=== PATIENT | female | born 1950 | race Caucasian/White ===

== ENCOUNTER 2018-04-20 12:22 | Emergency (ER) | payer MEDICAID ==
[~2018-04-20] VITALS: Ht 154.9 cm; Wt 80.0 kg
[2018-04-20 12:30] VITALS: BP 179/64; PULSE 68; RESP 16; TEMP 98.8; O2SAT 97
[2018-04-20] MEDS ORDERED: KETOROLAC TROMETHAMINE 30 MG/ML (IVP) VIAL IVP ONE (13:15)
[2018-04-20 13:41] VITALS: O2SAT 97
[2018-04-20 13:41] LABS: AUTOMATED NEUTROPHIL # 3.6 TH/MM3 (1.8-7.7); BASOPHIL # 0.1 TH/MM3 (0-0.2); BASOPHIL % 0.8 % (0.0-2.0); EOSINOPHIL # 0.3 TH/MM3 (0-0.4); EOSINOPHIL % 3.6 % (0.0-4.0); HEMATOCRIT 38.2 % (35.0-46.0); HEMOGLOBIN 13.3 GM/DL (11.6-15.3); LYMPH % 32.8 % (9.0-44.0); LYMPHOCYTE # 2.3 TH/MM3 (1.0-4.8); MEAN CELL VOLUME 87.3 FL (80.0-100.0); MEAN CORPUSCULAR HEMOGLOBIN 30.5 PG (27.0-34.0); MEAN CORPUSCULAR HGB CONC 34.9 % (32.0-36.0); MONO % 10.6 % (0.0-8.0); MONOCYTE # 0.7 TH/MM3 (0-0.9); NEUT % 52.2 % (16.0-70.0); PLATELET COUNT 186 TH/MM3 (150-450); RED BLOOD COUNT 4.38 MIL/MM3 (4.00-5.30); RED CELL DISTRIBUTION WIDTH 13.5 % (11.6-17.2); WHITE BLOOD COUNT 6.9 TH/MM3 (4.0-11.0)
[2018-04-20 14:06] LABS: ALKALINE PHOSPHATASE 44 U/L (45-117); CREATININE 0.71 MG/DL (0.50-1.00); GLOMERULAR FILTRATION RATE 82 ML/MIN (>89); TOTAL BILIRUBIN ADULT 0.5 MG/DL (0.2-1.0); TOTAL PROTEIN 7.1 GM/DL (6.4-8.2)
[2018-04-20 14:13] LABS: ALBUMIN 3.8 GM/DL (3.4-5.0); ALT (GPT) 36 U/L (10-53); AST (GOT) 22 U/L (15-37); BICARBONATE 25.9 MEQ/L (21.0-32.0); BLOOD UREA NITROGEN 12 MG/DL (7-18); CALCIUM 8.8 MG/DL (8.5-10.1); CHLORIDE 107 MEQ/L (98-107); GLUCOSE,RANDOM 95 MG/DL (74-106); SODIUM (NA) 141 MEQ/L (136-145)
--- NOTE | 2018-04-20 14:29 | PD ---
HPI Chief Complaint: GI Complaint Time Seen by Provider: 12:55 Travel History International Travel<30 days: No Contact w/Intl Traveler<30days: No Traveled to known affect area: No History of Present Illness HPI 67-year-old female presents to the emergency department with complaint of right upper quadrant abdominal pain that is worsened over the past couple weeks. She has history of gallstones, per ultrasound one year ago and has not been able to follow-up with a surgeon because of her insurance. Says the pain radiates around to her flank. Denies nausea, vomiting, diarrhea, fevers, dysuria, change in stool. Has been taking meloxicam and naproxen for symptom management. Rates pain 8/10. Describes it as spasms. Her pain is aggravated when she tries to have a bowel movement. Denies anticoagulant therapy. Denies history of abdominal surgeries. Primary care provider is Dr. Magallanes. No known allergies. History of hypertension and hypothyroidism. Has no other medical complaints. No other modifying factors or associated signs and symptoms. PFSH Past Medical History Cardiovascular Problems: Yes ?: Not Social History Alcohol Use: No Tobacco Use: No Substance Use: No Allergies-Medications (Allergen,Severity, Reaction): Coded Allergies: No Known Allergies (Unverified , 04/20/18) Review of Systems Except as stated in HPI: all other systems reviewed are Neg Physical Exam Narrative GENERAL: Well-nourished, well-developed female patient, in no acute distress; afebrile SKIN: Warm and dry. HEAD: Atraumatic. Normocephalic. EYES: Pupils equal and round. No scleral icterus. No injection or drainage. ENT: Mucosa pink and moist. Airway patent. NECK: Trachea midline. CARDIOVASCULAR: Regular rate and rhythm. No murmur appreciated. RESPIRATORY: No accessory muscle use. Clear to auscultation. Breath sounds equal bilaterally. GASTROINTESTINAL: Abdomen soft, tenderness on palpation to right upper quadrant , nondistended. Hepatic and splenic margins not palpable. Bowel sounds are active 4 quadrants. Nonrigid. No guarding. BACK: No CVA tenderness. MUSCULOSKELETAL: No obvious deformities. No clubbing. No cyanosis. No edema. NEUROLOGICAL: Awake and alert. Oriented 3. No obvious cranial nerve deficits. Motor grossly within normal limits. Normal speech. PSYCHIATRIC: Appropriate mood and affect; insight and judgment normal. Data Data Last Documented VS Vital Signs Date Time Temp Pulse Resp B/P (MAP) Pulse Ox O2 Delivery O2 Flow Rate FiO2 04/20/18 13:41 97 Room Air 04/20/18 12:30 98.8 68 16 179/64 (102) Orders Orders Complete Blood Count With Diff (04/20/18 12:58) Comprehensive Metabolic Panel (04/20/18 12:58) Lipase (04/20/18 12:58) Urinalysis - C+S If Indicated (04/20/18 12:58) Iv Access Insert/Monitor (04/20/18 12:58) Ecg Monitoring (04/20/18 12:58) Oximetry (04/20/18 12:58) Us Abdomen Gallbladder (04/20/18 ) Ketorolac Inj (Toradol Inj) (04/20/18 13:15) Ed Discharge Order (04/20/18 16:54) Labs Laboratory Tests Test 04/20/18 13:30 White Blood Count 6.9 TH/MM3 Red Blood Count 4.38 MIL/MM3 Hemoglobin 13.3 GM/DL Hematocrit 38.2 % Mean Corpuscular Volume 87.3 FL Mean Corpuscular Hemoglobin 30.5 PG Mean Corpuscular Hemoglobin Concent 34.9 % Red Cell Distribution Width 13.5 % Platelet Count 186 TH/MM3 Mean Platelet Volume 7.0 FL Neutrophils (%) (Auto) 52.2 % Lymphocytes (%) (Auto) 32.8 % Monocytes (%) (Auto) 10.6 % Eosinophils (%) (Auto) 3.6 % Basophils (%) (Auto) 0.8 % Neutrophils # (Auto) 3.6 TH/MM3 Lymphocytes # (Auto) 2.3 TH/MM3 Monocytes # (Auto) 0.7 TH/MM3 Eosinophils # (Auto) 0.3 TH/MM3 Basophils # (Auto) 0.1 TH/MM3 CBC Comment DIFF FINAL Differential Comment Urine Color Straw Urine Turbidity CLEAR Urine pH 5.0 Urine Specific [place] 1.006 Urine Protein NEG mg/dL Urine Glucose (UA) NEG mg/dL Urine Ketones NEG mg/dL Urine Occult Blood NEG Urine Nitrite NEG Urine Bilirubin NEG Urine Urobilinogen LESS THAN 2 mg/dL Urine Leukocyte Esterase NEG Urine RBC LESS THAN 1 /hpf Urine WBC 1 /hpf Urine Squamous Epithelial Cells 1 /hpf Urine Mucus FEW /lpf Microscopic Urinalysis Comment CULT NOT INDICATED Blood Urea Nitrogen 12 MG/DL Creatinine 0.71 MG/DL Random Glucose 95 MG/DL Total Protein 7.1 GM/DL Albumin 3.8 GM/DL Calcium Level 8.8 MG/DL Alkaline Phosphatase 44 U/L Aspartate Amino Transf (AST/SGOT) 22 U/L Alanine Aminotransferase (ALT/SGPT) 36 U/L Total Bilirubin 0.5 MG/DL Sodium Level 141 MEQ/L Potassium Level 3.9 MEQ/L Chloride Level 107 MEQ/L Carbon Dioxide Level 25.9 MEQ/L Anion Gap 8 MEQ/L Estimat Glomerular Filtration Rate 82 ML/MIN Lipase 103 U/L MDM Medical Decision Making Medical Screen Exam Complete: Yes Emergency Medical Condition: Yes Medical Record Reviewed: Yes Differential Diagnosis Cholecystitis, lithiasis, pyelonephritis Narrative Course 67-year-old female with right upper quadrant abdominal pain. Has history of gallstones and has not been able to follow-up with a surgeon secondary to her insurance. Pain has worsened in the past couple weeks. She is afebrile and nontoxic-appearing. Denies fever, vomiting. I discussed the patient with Dr. Joseph and she agrees with my plan of care. CBC, CMP, lipase, urinalysis, IV, IV Toradol, right upper quadrant abdominal ultrasound ordered. 1640: CBC, CMP, lipase, urinalysis unremarkable. Gall Bladder Ultrasound 04/20/18 0000 Signed Impressions: CONCLUSION: 1. Cholelithiasis. 2. Mild increased echogenicity of the liver which could suggest some degree of hepatic steatosis. Patient Provided a copy of the ultrasound report. Discussed patient findings with Dr. Joseph and she agrees with outpatient follow-up and disposition. Instructed patient to follow up with primary care provider. Patient verbalizes understanding and agreement with treatment plan. Patient is medically cleared and stable for discharge. Discussed reasons to return to the emergency department. Patient agrees with treatment plan. The patients vital signs are stable and the patient is stable for outpatient follow-up and treatment. Patient discharged home, stable and in no acute distress. Diagnosis Primary Impression: Cholelithiasis Qualified Codes: K80.20 - Calculus of gallbladder without cholecystitis without obstruction Referrals: Primary Care Physician Patient Instructions: Gallstones (ED), General Instructions Additional Instructions: Avoid aggravating foods, such as deep fried or spicy food Follow-up with primary care provider Return to the emergency department immediately with worsening of symptoms Med/Other Pt SpecificInfo: No Change to Meds, No Meds Exist/No RX given Disposition: 01 DISCHARGE HOME Condition: Stable Tammy Gracia Apr 20, 2018 14:29
[2018-04-20 14:40] LABS: BILIRUBIN, URINE NEG (NEG); BLOOD, URINE NEG (NEG); GLUCOSE,URINE NEG (NEG); KETONE, URINE NEG (NEG); MUCUS URINE FEW /lpf (OCC); NITRITE,URINE NEG (NEG); SQUAMOUS EPITHELIAL CELL URINE 1 /hpf (0-5); URINE COLOR Straw (YELLW/STRAW); URINE LEUKOCYTE ESTERASE NEG (NEG)
--- NOTE | 2018-04-20 14:44 | RADRPT ---
EXAM DATE: 04/20/2018 2:40 PM EDT AGE/SEX: 67 years / Female INDICATIONS: Right upper quadrant pain. CLINICAL DATA: This is the patient's initial encounter. Patient reports that signs and/or symptoms h ave been present for 2 months and indicates a pain score of 6/10. MEDICAL/SURGICAL HISTORY: . Cardiac disorders. None. COMPARISON: No prior exams available for comparison. MEASUREMENTS (cm x cm x cm): Liver:__ 13.0 cm length Common Bile Duct:__ 3mm FINDINGS: Liver: There is mild increased echotexture without focal lesion or ductal dilation. Portal Vein: Hepatopedal flow seen in portal vein. Common Duct: No intraluminal mass or stone visualized. Gallbladder: Gallstones are seen. The gallbladder is nondistended. Pancreas: The visualized portions are within normal limits Right Kidney: Normal echotexture and cortical thickness. No mass or hydronephrosis. Other: None. CONCLUSION: 1. Cholelithiasis. 2. Mild increased echogenicity of the liver which could suggest some degree of hepatic steatosis. Electronically signed by: Vladimir Whyte MD 04/20/2018 2:43 PM EDT
[2018-04-20 17:04] VITALS: BP 169/72
== END 2018-04-20 17:06 | disposition home or self-care (01) ==
LOC: NEPD 12:22
DX: K80.20 Calculus of gallbladder without cholecystitis without obstruction (principal); K76.0 Fatty (change of) liver, not elsewhere classified; E03.9 Hypothyroidism, unspecified; I10 Essential (primary) hypertension
CPT/HCPCS: 76705; 80053; 81001; 83690; 85025; 96374; 99284; J1885